=== PATIENT | female | born 1945 | race Caucasian/White ===

== ENCOUNTER 2020-04-01 09:04 | Inpatient (IN) ==
--- NOTE | 2020-03-16 13:01 | Anesthesiology Consultation ---
Date of Service March 16, 2020 Assessment & Plan (1) Encounter for pre-operative examination: Chart Review Chart Review: Pending: Refer to Additional Notes / Consult section (final PCP clearance (awaiting preop testing), 03/15 CXR/urine culture (in process) and preop Covid testing) Per nursing assessment 03/16/2020, pt traveled [place]- 03/06[place]. No known Covid positive contacts or Covid related symptoms. Will be >2 weeks since travel at time of surgery and preop Covid testing. Will await preop Covid testing results. Seen by PCP 03/15/20= Awaiting results for labs, x rays and EKG. CXR/urine culture from 03/15/20 still pending. Vascular Surgery Telemedicine Visit 11/25/19= follow up on surveillance of carotid/subclavian disease. Asymptomatic left subclavian disease. Carotid stenosis as per 11/2018 carotid Doppler. Vascular surgery considers patient to have minimal carotid disease by last duplex November 2018. She has no signs or symptoms of TIA, CVA or AF. Known left subclavian artery stenosis which remains asymptomatic. Recommend blood pressures and right arm for accuracy. Follow-up in 1 year with carotid duplex. Last seen by cardio in office 08/29/19= patient with history of ectopic atrial tachycardia. Continue current medications. Follow-up in 6 months. Per telephone note from cardio 09/30/19= "She has atrial arrhythmias but no history of CAD. She had a stress echo in the past year and there was no indication of ischemia. Her RCRI Cardiovascular risk is less than 0.5%. Therefore there is no indication for further cardiac work up before proceeding with surgery". 01/23/18 ACDF C4-7= Done under GA with Grade 1 view with MAC #3. ETT 7.5. History Surgery Operation Date: 04/01/20 13:25 Proposed Procedures p Right Reverse Total Shoulder Arthroplasty - Davin Aiken MD Height/Weight Height: 5 ft 3 in Weight: 65.317 kg Allergies Allergy/AdvReac Type Severity Reaction Status Date / Time clarithromycin Allergy Joint pain Unverified 03/16/20 13:46 hyoscyamine [From Levsin] Allergy Pain Unverified 03/16/20 13:46 throughout entire body latex Allergy Rash Unverified 03/16/20 13:46 levofloxacin [From Levaquin] Allergy Joint pain Unverified 03/16/20 13:46 Medications Home Medications Medication Instructions Recorded Confirmed Last Taken allopurinol 300 mg PO QAM 03/16/20 03/16/20 Unknown ascorbic acid (vitamin C) [Vitamin 500 mg PO DAILY 03/16/20 03/16/20 Unknown C] aspirin [Aspirin Low Dose] 81 mg PO HS 03/16/20 03/16/20 Unknown biotin 1 mg PO DAILY 03/16/20 03/16/20 Unknown calcium carb-D3-mag ox-zinc ox 1 tab PO DAILY 03/16/20 03/16/20 Unknown [Wilmer Mag Zinc Plus D3] celecoxib [Celebrex] 200 mg PO DAILY 03/16/20 03/16/20 Unknown coenzyme Q10 [Co Q-10] 100 mg PO DAILY 03/16/20 03/16/20 Unknown duloxetine [Cymbalta] 30 mg PO QAM 03/16/20 03/16/20 Unknown famotidine 20 mg PO QAM 03/16/20 03/16/20 Unknown glucos sul [id number]-iqegc-C-Mn 1 cap PO DAILY 03/16/20 03/16/20 Unknown [Glucosamine Chondroitin] levothyroxine 50 mcg PO QAM 03/16/20 03/16/20 Unknown potassium citrate 10 meq PO DAILY 03/16/20 03/16/20 Unknown simvastatin 20 mg PO HS 03/16/20 03/16/20 Unknown sotalol 80 mg PO BID 03/16/20 03/16/20 Unknown trazodone 50 mg PO HS 03/16/20 03/16/20 Unknown vitamin B complex 1 tab PO DAILY 03/16/20 03/16/20 Unknown Past Medical History Medical History (Updated 03/16/20 @ 13:39 by Claudia Bergman PA-C) Carotid stenosis Right ICA 50-69% and Left ICA < 50% per 11/2018 carotid doppler. Also showed left subclavian stenosis vs occlusion with reversed flow noted in vertebral artery. GERD (gastroesophageal reflux disease) Gout History of skin cancer Hyperlipidemia Hypothyroidism Migraine hx SVT (supraventricular tachycardia) Atrial tachycardia per cardio note- controlled with medication currently Past Family History Family History Other No family history of adverse response to anesthesia Past Surgical History Surgical History H/O hand surgery right History of appendectomy History of cardiac radiofrequency ablation NANDA Burt (~2-3 years ago) History of cataract surgery bilateral History of colonoscopy History of tonsillectomy Hx of bursectomy left hip S/P bunionectomy right foot and hammer toe correction S/P cervical discectomy "with cage" Dr Michelle C4-5-6-7. Full ROM. S/P LASIK surgery S/P DIMITRI-BSO Social History Smoking Status: Never smoker Do You Dip or Chew Tobacco: No Hx Alcohol Use: Yes Alcohol type: wine alcohol intake frequency: a few times a month Hx Substance Use: No substance use type: does not use Testing Laboratory Results 03/15/20= WBC: 9.38 H/H: 14.0/42.7 PLATELETS: 262 SODIUM: 141 POTASSIUM: 4.7 CHLORIDE: 100 CO2: 30 BUN: 11 CREATININE: 1.0 GLUCOSE: 83 HGB A1C: 5.7 PT: 13.2 PTT: 35 INR: 1.00 UA: Trace protein, 2 urobilinogen, trace esterase. (Culture pending) Electrocardiogram Date: 03/15/20 Findings: + SB @ (55) Right bundle branch block. Compared to EKG from August 22, 2019no significant change found per cardio. Stress Test Date: 02/03/19 Type: exercise (Echo) Resting EF: 50 to 54% Resting LV Function: normal Resting RWMA: + none Stress echo was negative for inducible ischemia. Left ventricular ejection fraction increases normally with stress. Exercise capacity is above average. Stress EKG equivocal due to RBBB. Moderate concentric LVH. Grade 1 diastolic dysfunction. Mild MR. Mild TR. Other Testing Carotid Duplex 12/11/18= Right carotid artery duplex examination indicates evidence of 50-69% stenosis of the internal carotid artery. Left carotid artery duplex examination indicates evidence of less than 50% stenosis of the internal carotid artery. Left subclavian stenosis versus occlusion with reversed flow noted in the vertebral artery.
--- NOTE | 2020-03-31 18:45 | History and Physical Report ---
DATE OF ADMISSION: 04/01/2020 CHIEF COMPLAINT: Chronic right shoulder pain and weakness. HISTORY OF PRESENT ILLNESS: This is a 74-year-old female patient of Dr. Aiken'topher complaining of chronic right shoulder pain and weakness, longstanding, now progressively getting worse. The patient has failed conservative treatment and has elected to proceed with a right reverse total shoulder arthroplasty. PAST MEDICAL HISTORY: Heart palpitations including SVT, upper back problems, acid reflux, basal cell carcinoma. SOCIAL HISTORY: Nonsmoker, occasional drinker. PAST SURGICAL HISTORY: Tonsils, appendectomy, ovarian removal, hysterectomy, right hand, right foot, right shoulder and C-spine surgery. FAMILY HISTORY: Noncontributory. REVIEW OF SYSTEMS: Chronic right shoulder pain and weakness. Otherwise, denies any shortness of breath, chest pain, nausea, vomiting or any other joint complaints. MEDICATIONS: 1. Levothyroxine 50 mcg daily. 2. Allopurinol 300 mg daily. 3. Simvastatin 20 mg daily. 4. Aspirin 81 mg daily. 5. Trazodone 50 mg at bedtime. 6. Potassium chloride 10 mEq daily. 7. Sotalol 80 mg twice daily. 8. Pepcid 20 mg daily. 9. Zofran 8 mg as needed. 10. Vitamin D3 daily. 11. Hydrochlorothiazide 50 mg daily as needed. 12. Vitamin C 500 mg tablets twice daily. 13. Vitamin B complex daily. 14. CoQ10 100 mg daily. 15. Biotin 10,000 mcg daily. 16. Cymbalta 30 mg daily. 17. Glucosamine chondroitin daily. 18. Calcium and magnesium complete vitamin twice daily. 19. Celebrex 200 mg daily. ALLERGIES: , HYOSCYAMINE SULFATE, LATEX, LEVOFLOXACIN. PHYSICAL EXAMINATION: GENERAL: Well-developed, well-nourished 74-year-old female in no acute distress. She is alert and oriented x3 and pleasant. HEENT: Normocephalic, atraumatic. Extraocular motions are intact. Pupils are equal and reactive to light. HEART: Regular rate and rhythm, no murmurs. LUNGS: Clear. ABDOMEN: Soft, nontender, bowel sounds present. EXTREMITIES: Right shoulder and upper extremity reveals active range of motion of 0-80 with pain, passively to 170 with pain. She has 2+/5 strength globally. She has crepitation and pain with range of motion. Neurologically and neurovascularly, she is intact in her right upper extremity. DIAGNOSES: Right shoulder rotator cuff arthropathy, history of supraventricular tachycardia, palpitations, neck problems, acid reflux, basal cell carcinoma, hypothyroidism, hypercholesterolemia. PLAN: The patient was advised of her diagnosis. Indications, risks, benefits, postop course have all been reviewed. The patient wished to proceed with a right reversed total shoulder arthroplasty. Necessary consent forms, preoperative testing and clearances will be obtained.
[~2020-04-01 09:04] MED LIST: ACETAMINOPHEN 500 MG TAB PO SCH; CEFAZOLIN 1000MG 1,000 MG/7.5 ML SYR IV SCH; CeleBREX 200 MG CAP PO SCH; DEXAMETHASONE SOD INJ 4 MG/ML VIAL ONE; FAMOTIDINE 20 MG TAB PO SCH; GABAPENTIN 300 MG CAP PO SCH; LR 15ML/HR IV SCH; METOCLOPRAMIDE HCL 10 MG TABLET PO SCH; ROPIVACAINE 0.5% 5 MG/ML 30 ML VIAL ONE; dexAMETHasone 4 MG TAB PO SCH
[2020-04-01] MEDS ORDERED: MIDAZOLAM HCL 1 MG/ML 2ML VIAL ONE ×2 (09:25)
[2020-04-01] MEDS ORDERED: NEOSTIGMINE METHYLSULFATE 5 MG/5 ML SYR ONE (09:25)
[2020-04-01] MEDS ORDERED: GLYCOPYRROLATE 0.2 MG/ML VIAL ONE ×2 (09:25→13:08)
[2020-04-01] MEDS ORDERED: ONDANSETRON INJ 2 MG/ML 2 ML VIAL ONE ×2 (09:25→12:19)
[2020-04-01] MEDS ORDERED: LIDOCAINE HCL 2% 2 ML VIAL/AMP(20MG/ML) INFIL ONE (09:25)
[2020-04-01] MEDS ORDERED: DEXAMETHASONE SOD INJ 4 MG/ML VIAL ONE (09:25)
[2020-04-01] MEDS ORDERED: fentaNYL citrate 100 MCG/2 ML VIAL ONE (09:25)
[2020-04-01] MEDS ORDERED: PROPOFOL IV EMULSION 10 MG/ML 20 ML VIAL IV ONE (09:25)
--- NOTE | 2020-04-01 09:37 | History & Physical Bridge Note ---
Date of Service April 01, 2020 History & Physical Bridge Note I have examined the patient, reviewed the History & Physical and in the interval since the performance of the History & Physical I have noted the following changes of clinical significance: no changes noted
[2020-04-01] MEDS ORDERED: BACITRACIN INJ 50,000 UNIT VIAL ONE (10:19)
[2020-04-01] MEDS ORDERED: METOCLOPRAMIDE HCL INJ 5 MG/ML 2 ML VIAL IV PRN (10:33)
[2020-04-01] MEDS ORDERED: ePHEDrine sulfate 50 MG/ML AMP IV PRN (10:33)
[2020-04-01] MEDS ORDERED: fentaNYL citrate 100 MCG/2 ML VIAL IV PRN (10:33)
[2020-04-01] MEDS ORDERED: ATROPINE SULFATE 0.1 MG/ML 10ML SYR IV PRN (10:33)
[2020-04-01] MEDS ORDERED: ONDANSETRON INJ 2 MG/ML 2 ML VIAL IV PRN (10:33)
[2020-04-01] MEDS ORDERED: PROMETHAZINE HCL 12.5 MG in SODIUM CHLORIDE 0.9% 50 ML IV PRN (10:33)
[2020-04-01] MEDS ORDERED: HYDROmorphone INJ 2 MG/ML SYR/VIAL IV PRN (10:33)
[2020-04-01] MEDS ORDERED: ROCURONIUM BROMIDE 10 MG/ML 5 ML VIAL IV ONE (12:19)
--- NOTE | 2020-04-01 13:47 | Operative Report ---
Post Operative Report Pre & Post Diagnosis Operation Date: 04/01/20 11:35 Pre-Op Diagnosis: Right Shoulder Rotator Cuff Arthropathy, failed rotator cuff repair, retained hardware (suture anchors). Post-Op Diagnosis: Same, biceps tendinitis I identified the patient and participated in the time-out.: Yes Procedure Operation Date: 04/01/20 11:35 Actual Procedures p Right Reverse Total Shoulder Arthroplasty, biceps tenodesis, hardware removal(Right) - Davin Aiken MD Surgeon Davin Aiken MD Resource Economist LALITA Millard Estimated Blood Loss 50 Findings Consistent with Post-Op Diagnosis Specimens Humeral head cut and 2of4 suture anchors Drains 2 Hemovac Anesthesia Type General Regional Complications none Disposition Accompanied Patient To Recovery: No Indications 74-year-old female who I performed a rotator cuff repair of a large acute on chronic rotator cuff tear. Patient had more pain than typical postoperative course over time and had persistent weakness with MRI 4 months postop demonstrating recurrent rotator cuff tear failed rotator cuff repair with proximal migration humerus and chronic inflammation and early rotator cuff arthropathy. Patient had unremitting pain requiring narcotics failed conservative management. All inflammatory parameters are negative and there is no signs of infection. Description of Procedure The patient was taken to the operating room and anesthetized under regional block and general anesthetic. The patient was positioned on the operating table in a 30 beachchair position with a towel roll under the medial border of the right scapula. The arm was draped free to be able to manipulate the shoulder as needed. The right upper extremity was prepped and draped in usual sterile fashion. Exam demonstrated 120 degrees forward elevation 100 to use abduction and 20 degrees external rotation. An anterior deltopectoral approach was performed. A longitudinal incision was made in the deltopectoral interval. The skin was incised sharply. Subcutaneous flaps were elevated off the fascia. The cephalic vein was dissected out and retracted lateral with the deltoid. The clavipectoral fascia was divided at the lateral margin of the conjoined tendon and extended up to the CA ligament. The following findings were noted: The subscapularis tendon was intact. There was scarred tenosynovitis of the biceps in the biceps groove and below the bicipital groove above the pectoral tendon. There was soft tissue failure of the rotator cuff both supraspinatus and anterior infraspinatus with teres minor intact. There was retained suture material in the old anchor fixation sites and the anchors were all intact well fixed within the bone. There was some scar tissue in the subdeltoid region. There was scarred bursal tissue overlying the failed rotator cuff repair. The upper centimeter of the pectoralis was released for inferior exposure. The biceps tendon findings demonstrated scarred biceps tendon in the bicipital groove below the biceps groove and above the pectoralis insertion. the biceps tendon was tenodesed to the pectoralis tendon with #2 FiberWire. The proximal biceps and scarred tenosynovium was resected. The subscapularis tendon was taken down off the lesser tuberosity using a subperiosteal dissection. A #1 Vicryl traction suture was placed into the free end of the subscapularis tendon and capsule. The subscapular muscle fibers were split longitudinally at the level of the circumflex vessels. The circumflex vessels were identified and tied off with silk ties and divided laterally. A Kitner elevator was used to free up the inferior fibers of the subscapularis off of the capsule. The axillary nerve was identified with a tug test and protected with a blunt Kee retractor between the nerve and the capsule. The subscapularis tendon was then taken down off of the lesser tuberosity subperiosteally and subperiosteal dissection was performed along the neck of the humerus as the arm is gradually externally rotated exposing the humeral head. The humeral head findings demonstrated grade 3 degenerative changes in the superior humeral head and on the glenoid no osteophytes. A Pedro elevator was used to assist in releasing the capsule of the neck of the humerus. The capsule was divided with Borja scissors down to the glenoid released off the anterior glenoid and the rotator interval was released to meet the capsular release and a 360 release of the subscapularis was accomplished. A Fukuda retractor was placed into the joint retracting the humeral head posterior. Glenoid findings demonstrated intact cartilage but grade III chondromalacia. The labrum and biceps tendon was resected. an anterior-inferior and posterior inferior capsular release were performed with electrocautery and a Pedro elevator on bone with the axillary nerve protected inferiorly by the retractor. Attention was then taken to the humeral preparation. The cutting guide was placed into the humeral head. It was positioned at 20 of retroversion. Oscillating saw was used to resect the humeral head giving the cut above the level of the posterior rotator cuff insertion site. The humerus was then prepared for the stem. I used the ascend flex stem from [employer] The sizing broaches were used followed by trial broaches up to a size 5B long which had the appropriate fit and fill. The appropriate sized cut protector was placed. The humerus was then retracted posterior to the glenoid. The glenoid was sized for a 25 baseplate. The guide for the baseplate was positioned in a 10 inferior tilt and the central drill hole was made. The reamer for the 25 baseplate was used. The central drill was widened for the peg. Because the patient has some superior tilt on her port lions glenoid he had to resect more the inferior glenoid and superior glenoid and we did ream down into the subchondral bone and it started to fragment superficially but the deep bone was still intact without fracture. Used bone graft from the humeral head to bone graft a cyst that was curetted in the posterior glenoid and also put a thin layer of bone graft over the inferior glenoid as patient has significant osteoporosis. The aequalis 25 mm hydroxyapatite-coated baseplate was impacted into position. The base plate was transfixed with superior and inferior locking screws and anterior and posterior compression screws with stable fixation. The fan reamer was used for the 36 mm symmetrical glenoid sphere. After irrigation the 36 mm symmetrical glenoid sphere was impacted onto the baseplate and the screw was tightened. Attention was taken back to the humerus. The cut protector was removed and the low offset +0 humeral tray trial was assembled to the trial stem rotated appropriately to get bony coverage and then screwed in position. A trial reduction was performed. The reduction was too tight and we had to resect a few more millimeters of the neck and set the implant deeper and cut off some of the neck bone with the oscillating saw replaced trials and the +6 mm trial insert demonstrated good stability and no shuck. The trials were removed. 3 drill holes are made into the harder bone in the bicipital groove area and 3 #5 FiberWire sutures were placed transosseously. The canal was irrigated with antibiotic solution with bacitracin. The final component was assembled. The final component was 5B long ascend flex P TC bone ingrowth stem with +0 low offset humeral tray and the 36+6 reversed insert polyethylene. This was then impacted into the humerus with a tight press-fit. It was reduced to the glenoid sphere. Stability was verified. Subscapularis was repaired with the #5 FiberWire sutures using Wesley-Akash suture technique. Lateral row soft tissue repair was performed with #2 FiberWire [id number] sutures. The pectoralis was repaired with #2 FiberWire [id number] sutures reinforcing the biceps tendon tenodesis. The arm was taken through a range of motion which demonstrated 150 degrees forward elevation 100 use abduction and 40 degrees of X rotation without any tension on repair. The implant was stable through the range of motion tested. The wound was copiously irrigated. 2 Hemovac drains were placed. The deltopectoral interval was closed with [id number] #1 Vicryl sutures. The subcutaneous tissues were closed with 2-0 Vicryl sutures. The skin was closed with toby. Sterile dressings were applied and a shoulder immobilizer. Guy CELIS my physician assistant associate full professor assisted in the procedure to the entire procedure including patient positioning arm positioning prepping and draping soft tissue retraction instrument management suture management and performed the subcutaneous and skin closure and will participate in the postoperative care of the patient. I attest to the content of the Intraoperative Record and any orders documented therein. Any exceptions are noted below.
--- NOTE | 2020-04-01 14:02 | Operative Report (OR) ---
DATE OF OPERATION: 04/01/2020 ADDENDUM: After the humeral head cut was made, I did expose the metaphysis bone of the humerus. During the broaching, we encountered the suture anchors, which had to be removed in order to continue proceeding with the procedure. Two PEEK footprint anchors and 2 Healicoil anchors were removed. The Healicoil anchors were removed piecemeal as there are thin spiral type anchors and the footprint anchors were removed in their entirety and sent as specimen. All the suture material was removed from those anchors. It was noted that there was soft tissue failure with the repair and all the sutures were intact and were not torn. I attest to the content of the Intraoperative Record and any orders documented therein. Any exception s are noted below.
--- NOTE | 2020-04-01 14:07 | XRay Report ---
XR shoulder RT min 2V routine CLINICAL HISTORY: Post shoulder surgery COMPARISON STUDY: None. FINDINGS: The patient is status post a reverse right total shoulder arthroplasty the hardware is inta ct. No fracture or dislocation. Skin toby and surgical drains are in place. Evidence for prior cer vical spinal fusion. IMPRESSION: Status post reverse right total shoulder arthroplasty. No evidence for hardware complica tion. ACT 112: Negative or not required by law. Electronically signed by: Antoine Gongora M.D. 04/01/2020 2:06 PM
--- NOTE | 2020-04-01 14:16 | Anesthesiology Progress Note ---
Date of Service April 01, 2020 Anesthesia Post Procedure Vital Signs Vital Signs: Temp Pulse Pulse Resp BP BP Pulse Ox 04/01/20 14:05 55 L 11 L 115/58 L 99 04/01/20 13:55 53 L 12 119/59 L 99 04/01/20 13:45 58 L 14 127/64 99 04/01/20 13:38 36.0 C L 63 12 112/64 99 04/01/20 10:27 119/56 L 04/01/20 10:25 123/62 04/01/20 09:57 36.7 C 53 L 16 138/66 99 Pain Intensity Right Shoulder: Pain Intensity: 0 Transfer of Care Handoff Completed per policy Notes Mental Status: alert / awake / arousable and participated in evaluation Patient Amnestic to Procedure: Yes Nausea / Vomiting: adequately controlled Pain: adequately controlled Airway Patency, RR, SpO2: stable & adequate BP & HR: stable & adequate Hydration State: stable & adequate Anesthetic Complications: no major complications apparent
[2020-04-01] MEDS ORDERED: NALOXONE HCL 0.4 MG/1 ML VIAL/CARP IV PRN (14:50)
[2020-04-01] MEDS ORDERED: bisacodyL 10 MG SUPP PR PRN (14:50)
[2020-04-01] MEDS ORDERED: MAGNESIUM HYDROXIDE SUSP 30 ML UDC PO PRN (14:50)
--- NOTE | 2020-04-01 16:10 | Consultation ---
Date of Consultation April 01, 2020 Assessment & Plan (1) Status post reverse total arthroplasty of right shoulder: Post op day# 0 S/P right reverse shoulder arthroplasty today by Dr. Aiken EB#50ml -pain management per ortho -wound management per ortho -PT/OT as appropriate -DVT prophylaxis per ortho -incentive spirometry -monitor H&H for acute blood loss anemia; pre-op Hgb: 15 (2) History of atrial tachycardia: S/P Ablation. On Sotalol H/O sinus bradycardia on pre-op EKG -Noted bradycardia with rate in 50's. Regular rhythm on exam. Pt asymptomatic -Continue sotalol -Monitor pulse (3) Hypotension: BP's 98/59. Pt asymptomatic -Currently receiving maintenance IVF -Monitor BP (4) Hypothyroidism: -Continue levothyroxine (5) Gout: -Continue allopurinol (6) Hyperlipidemia: -Continue simvastatin DVT Prophylaxis -SCDs per ortho Disposition per primary service Follows with Agustín Alcantara PA-C for routine care Pt was seen and care coordinated with Dr Sequeira. See addendum Pt will be followed by Dr Mcnulty starting 04/02/2020. Thank you for this consultation. We will follow the patient with you during their hospital stay. You can reach a member of the [facility] Team 12/03 via pager @ [phone]. Supervising Physician Co-Signing Physician Notes I have seen and examined the patient and have discussed the case with the provider above. I agree with the assessment and plan as stated. 74 yo F s/p shoulder surgery today. BP and pulse have been lower than normal today. She reports feeling fine but has some numbness in her right hand, a typical post-op finding in this type of surgery. She is otherwise not working to breathe, denies chest pain and has a normal cardiopulmonary system on exam. S1/2 was heard and no gallops, murmurs or rubs. Lungs were CTA bilaterally. Abdomen was soft, NTND. No peripheral edema was present. She was alert and oriented. Agree with post-operative care plan as stated above and per Orthopedics. Thank you for this consult. DO Hua, [facility] History of Present Illness Requesting Physician: Dr Aiken Reason for Consultation: Post op medical management Attending Physician: Daivn Aiken MD History of Present Illness Pt is 74 y/o F with PMH atrial tachycardia s/p ablation on sotalol, dyslipidemia, gout, hypothyroidism, asymptomatic carotid stenosis, asymptomatic left subclavian vein stenosis [place] [facility] [place] consultation s/p right reverse shoulder arthroplasty today by Dr. Aiken. Postop patient reports right shoulder and arm still with numbness. She also reports throat is scratchy and is otherwise without complaint. Has been able to drink water without difficulty. Denies nausea, vomiting, shortness of breath, chest pain, palpitations, dizziness. Reports last BM was 03/31/2020. Denies fever/chills, diaphoresis, MA, syncope, vision changes, neck pain, CP, SOB, orthopnea, cough, choking, abdominal pain, extremity edema, rashes, urinary symptoms. Allergies Allergy/AdvReac Type Severity Reaction Status Date / Time clarithromycin Allergy Joint pain Verified 04/01/20 09:51 hyoscyamine [From Levsin] Allergy Pain Verified 04/01/20 09:51 throughout entire body latex Allergy Rash Verified 04/01/20 09:51 levofloxacin [From Levaquin] Allergy Joint pain Verified 04/01/20 09:51 Home Medications Home Medications Medication Instructions Recorded Confirmed Type allopurinol 300 mg PO QAM 03/16/20 04/01/20 History ascorbic acid (vitamin C) [Vitamin 500 mg PO DAILY 03/16/20 04/01/20 History C] aspirin [Aspirin Low Dose] 81 mg PO HS 03/16/20 04/01/20 History biotin 1 mg PO DAILY 03/16/20 04/01/20 History calcium carb-D3-mag ox-zinc ox 1 tab PO DAILY 03/16/20 04/01/20 History [Wilmer Mag Zinc Plus D3] celecoxib [Celebrex] 200 mg PO DAILY 03/16/20 04/01/20 History coenzyme Q10 [Co Q-10] 100 mg PO DAILY 03/16/20 04/01/20 History duloxetine [Cymbalta] 30 mg PO QAM 03/16/20 04/01/20 History famotidine 20 mg PO QAM 03/16/20 04/01/20 History glucos sul [id number] 1 cap PO DAILY 03/16/20 04/01/20 History [Glucosamine Chondroitin] levothyroxine 50 mcg PO QAM 03/16/20 04/01/20 History potassium citrate 10 meq PO DAILY 03/16/20 04/01/20 History simvastatin 20 mg PO HS 03/16/20 04/01/20 History sotalol 80 mg PO BID 03/16/20 04/01/20 History trazodone 50 mg PO HS 03/16/20 04/01/20 History vitamin B complex 1 tab PO DAILY 03/16/20 04/01/20 History Patient History Medical History (Updated 04/01/20 @ 16:20 by Moriah Mcclain PA-C) Carotid stenosis Right ICA 50-69% and Left ICA < 50% per 11/2018 carotid doppler. Also showed left subclavian stenosis vs occlusion with reversed flow noted in vertebral artery. GERD (gastroesophageal reflux disease) Gout History of atrial tachycardia History of skin cancer Hyperlipidemia Hypothyroidism Migraine hx SVT (supraventricular tachycardia) Atrial tachycardia per cardio note- controlled with medication currently Surgical History (Updated 04/01/20 @ 16:18 by Moriah Mcclain PA-C) H/O hand surgery right History of appendectomy History of cardiac radiofrequency ablation [facility] (~2-3 years ago) History of cataract surgery bilateral History of colonoscopy History of tonsillectomy Hx of bursectomy left hip S/P bunionectomy right foot and hammer toe correction S/P cervical discectomy "with cage" Dr Michelle [id number]. Full ROM. S/P LASIK surgery S/P DIMITRI-BSO Family History Other Cancer Hypertension No family history of adverse response to anesthesia Stroke Social History Smoking Status: Never smoker Second Hand Exposure: No; Do You Dip or Chew Tobacco: No; Tobacco Cessation Education Requested by Patient: No Hx Alcohol Use: Yes Alcohol type: wine Hx Substance Use: No Preferred Language: Portuguese Communication Ability: Effective Hearing Aid Specialist Required: No Beliefs That Will Affect Care: None Current Living Situation: Spouse Other Information That Helps Us Care for You: No Feels Safe at Home: Yes Safety Concerns: Feels Safe At This Time Review of Systems Review of Systems: All systems reviewed & are unremarkable except as noted in HPI & below Physical Exam Physical Exam: General: no distress, WDWN Head: normocephalic, atraumatic Eyes: conjunctiva non-injected, anicteric ENT: normal inspection external ears, nose, mucous membranes moist Neck: supple, trachea midline Lungs: clear, no respiratory distress, no wheezing/rhonchi/rales CV: bradycardia, rate 52, regular rhythm, no murmur, no pretibial edema Abd: normal BS, soft, non-tender Ext: RUE: +sling in place to right arm, distal pulses palpable, pt still with decreased sensation to light touch of fingers. Remaining extremities normal appearance, ROM intact. no calf tenderness Neuro: A&O x 3, no focal deficits noted, normal affect Skin: warm, dry Results & Data ([facility]) Vital Signs (Past 12 Hours) Vital Signs Temp Pulse Pulse Resp BP BP Pulse Ox 04/01/20 15:34 36.4 C L 51 L 14 98/59 L 100 04/01/20 14:58 36.2 C L 49 L 14 94/56 L 100 04/01/20 14:31 36.4 C L 52 L 14 108/65 100 04/01/20 14:15 36.7 C 52 L 12 110/58 L 99 04/01/20 14:05 55 L 11 L 115/58 L 99 04/01/20 13:55 53 L 12 119/59 L 99 04/01/20 13:45 58 L 14 127/64 99 04/01/20 13:38 36.0 C L 63 12 112/64 99 04/01/20 10:27 119/56 L 04/01/20 10:25 123/62 04/01/20 09:57 36.7 C 53 L 16 138/66 99
[2020-04-01] MEDS: SODIUM CHLORIDE 0.9% 1000ML 1,000 ML IV SCH (16:34)
[2020-04-01] MEDS: ACETAMINOPHEN 500 MG TAB PO SCH ×2 (16:37→21:25)
[2020-04-01] MEDS: CEFAZOLIN 1000MG 1,000 MG/7.5 ML SYR IV SCH ×2 (17:59→23:19)
[2020-04-01] MEDS: SIMVASTATIN 20 MG TAB PO SCH (20:17)
[2020-04-01] MEDS: SENNA 8.6 MG TAB PO SCH (20:17)
[2020-04-01] MEDS: DOCUSATE SODIUM 100 MG CAP PO SCH (20:17)
[2020-04-01] MEDS: TRAZODONE HCL 50 MG TAB PO SCH (20:17)
[2020-04-01] MEDS: ASPIRIN 81 MG ECTAB PO SCH (20:18)
[2020-04-01] MEDS ORDERED: SOTALOL HCL 80 MG TAB PO SCH (21:00)
[2020-04-02] MEDS: SODIUM CHLORIDE 0.9% 1000ML 1,000 ML IV SCH (02:27)
[2020-04-02 05:48] LABS: Hematocrit (blood only) 34.3 % (37-47); Hemoglobin 11.7 g/dL (12.0-16.0); Immature Granulocytes # (auto) 0.03 K/uL (0.00-0.02); Immature Granulocytes % (auto) 0.3 %; Lymphocytes # (auto) 0.95 K/uL (1.2-3.4); Lymphocytes % (auto) 8.2 %; Mean Corpuscular Hemoglobin 31.4 pg (25-34); Mean Corpuscular Hgb Conc 34.1 g/dL (32-36); Mean Platelet Volume 10.1 fL (7.4-10.4); Monocytes # (auto) 0.56 K/uL (0.11-0.59); Monocytes % (auto) 4.8 %; Neutrophils # (auto) 10.05 K/uL (1.4-6.5); Neutrophils % (auto) 86.7 %; Platelet Count 196 K/uL (130-400); RDW Coefficient of Variation 13.6 % (11.5-14.5); Red Blood Count 3.73 M/uL (4.2-5.4); White Blood Count 11.59 K/uL (4.8-10.8)
[2020-04-02] MEDS: LEVOTHYROXINE SODIUM 50 MCG TABLET PO SCH (05:56)
[2020-04-02] MEDS: ACETAMINOPHEN 500 MG TAB PO SCH ×3 (05:57→21:32)
[2020-04-02 06:14] LABS: BUN Creatinine Ratio 17.2 (10-20); Calcium 8.2 mg/dl (8.5-10.1); Est GFR (African American) 77.7; Potassium 4.3 mmol/L (3.5-5.1)
--- NOTE | 2020-04-02 07:39 | Anesthesiology Progress Note ---
Date of Service April 02, 2020 Anesthesia Post Procedure Vital Signs Vital Signs: Temp Pulse Pulse Resp BP BP Pulse Ox 04/02/20 02:50 36.6 C 64 16 106/76 98 04/01/20 22:40 36.5 C 63 16 93/54 L 95 04/01/20 19:42 36.6 C 55 L 16 108/67 95 04/01/20 17:32 36.3 C L 57 L 16 94/57 L 97 04/01/20 16:29 36.4 C L 50 L 16 93/65 L 97 04/01/20 15:34 36.4 C L 51 L 14 98/59 L 100 04/01/20 14:58 36.2 C L 49 L 14 94/56 L 100 04/01/20 14:31 36.4 C L 52 L 14 108/65 100 04/01/20 14:15 36.7 C 52 L 12 110/58 L 99 04/01/20 14:05 55 L 11 L 115/58 L 99 04/01/20 13:55 53 L 12 119/59 L 99 04/01/20 13:45 58 L 14 127/64 99 04/01/20 13:38 36.0 C L 63 12 112/64 99 04/01/20 10:27 119/56 L 04/01/20 10:25 123/62 04/01/20 09:57 36.7 C 53 L 16 138/66 99 Pain Intensity Right Shoulder: Pain Intensity: 0 Notes Mental Status: alert / awake / arousable and participated in evaluation Patient Amnestic to Procedure: Yes Nausea / Vomiting: adequately controlled Pain: adequately controlled Airway Patency, RR, SpO2: stable & adequate BP & HR: stable & adequate Hydration State: stable & adequate Anesthetic Complications: no major complications apparent and Pt Satisfied with anesthetic care
[2020-04-02] MEDS: ASCORBIC ACID 500 MG TAB PO SCH (08:13)
[2020-04-02] MEDS: DULOXETINE HCL 30 MG CAP PO SCH (08:13)
[2020-04-02] MEDS: MULTIVITAMIN TAB PO SCH (08:14)
[2020-04-02] MEDS: FAMOTIDINE 20 MG TAB PO SCH (08:14)
[2020-04-02] MEDS: POTASSIUM CITRATE 10 MEQ TAB PO SCH (08:14)
[2020-04-02] MEDS: VITAMIN B COMPLEX TAB PO SCH (08:14)
[2020-04-02] MEDS: CALCIUM 600MG + VIT D 400 IU TAB PO SCH (08:15)
[2020-04-02] MEDS: DOCUSATE SODIUM 100 MG CAP PO SCH ×2 (08:15→21:32)
[2020-04-02] MEDS: allopurinoL 300 MG TAB PO SCH (08:15)
--- NOTE | 2020-04-02 08:38 | Hospitalist Progress Note ---
Date of Service April 02, 2020 Assessment & Plan (1) Status post reverse total arthroplasty of right shoulder: Post op day# 1 S/P right reverse shoulder arthroplasty today by Dr. Aiken EBL#50ml Total hemovac output #295ml Post op doing well -pain management per ortho -wound management per ortho -PT/OT as appropriate -DVT prophylaxis per ortho -incentive spirometry -Hgb: 11.7 from pre-op Hgb: 15, consistent with dilution and acute blood loss anemia; continue to monitor H&H (2) History of atrial tachycardia: S/P failed Ablations. On Sotalol H/O sinus bradycardia on pre-op EKG -Noted bradycardia with rate in 50's. Regular rhythm on exam. Pt asymptomatic on POD #1. Sotalol was held last night -Today pulse in the low 60's. -Resume sotalol with holding parameters -Monitor pulse (3) Hypotension: BP's on low side yesterday. Today SBP's in low 100's. Pt asymptomatic -Monitor BP (4) Hypothyroidism: -Continue levothyroxine (5) Gout: -Continue allopurinol (6) Hyperlipidemia: -Continue simvastatin DVT Prophylaxis -SCDs per ortho Disposition per primary service Pt was seen and care coordinated with Dr Mcnulty. See addendum Thank you for this consultation. We will follow the patient with you during their hospital stay. You can reach a member of the [facility] Hospitalist Team 12/03 via pager @ [phone]. Admission and Anticipated Discharge Date Admission Date: April 01, 2020 Supervising Physician Co-Signing Physician Notes Pt was seen and examined. Agreed with Moriah SARGENT exam, assessment and plan. Day#1 Status post reverse total arthroplasty of right shoulder by Dr. Mcfadden. No Postop complications. Hgb 12 today. Walk in the hallway with PT, Continue PT/OT. Pain control. Fall precaution. Will resume Sotalol. Continue monitor. MD Pricila Subjective Pt seen an examined sitting up in bedside chair. POD #1. Patient states doing well. Denies any pain today. Reports paresthesias to arm and hand have resolved. Denies any dizziness, lightheadedness, palpitations, shortness of breath, chest pain. Eating and drinking well, no nausea or vomiting. Urinating without difficulty. Reports passing flatus. No BM yet. Denies fever/chills, diaphoresis, MA, neck pain, choking, abdominal pain, extremity edema, rashes, urinary symptoms. Review of Systems Review of Systems: All systems reviewed & are unremarkable except as noted in HPI & below Physical Exam Physical Exam: General: no distress, WDWN Head: normocephalic, atraumatic Eyes: conjunctiva non-injected, anicteric ENT: normal inspection external ears, nose, mucous membranes moist Neck: supple, trachea midline Lungs: clear, no respiratory distress, no wheezing/rhonchi/rales CV: RRR, rate 62, no murmur, no pretibial edema Abd: normal BS, soft, non-tender Ext: RUE: +sling in place to right arm, distal pulses palpable, Able to move fingers, sensation to light touch intact. Remaining extremities normal appe arance, ROM intact. no calf tenderness Neuro: A&O x 3, no focal deficits noted, normal affect Skin: warm, dry Results & Data Results & Data ([facility]) Vital Signs (Past 12 Hours) Vital Signs Temp Pulse Pulse Resp BP Pulse Ox 04/02/20 08:08 36.5 C 61 18 115/72 97 04/02/20 02:50 36.6 C 64 16 106/76 98 04/01/20 22:40 36.5 C 63 16 93/54 L 95 Laboratory Results Short CBC 04/02/20 Range/Units 05:29 WBC 11.59 H (4.8-10.8) K/uL Hgb 11.7 L (12.0-16.0) g/dL Hct 34.3 L (37-47) % Plt Count 196 (130-400) K/uL BMP 04/02/20 05:29 Sodium 140 Potassium 4.3 Chloride 107 Carbon Dioxide 27 BUN 15 Creatinine 0.85 Glucose 154 H Calcium 8.2 L
[2020-04-02] MEDS ORDERED: NON-FORMULARY MEDICATION (Coenzyme Q10 [Co Q-10] 100 MG) PO SCH (09:00)
[2020-04-02] MEDS ORDERED: NON-FORMULARY MEDICATION (Glucos Sul 2kcl-Msm-Chond-C-Mn [Glucosamine Chondroitin] 1 CAP) PO SCH (09:00)
[2020-04-02] MEDS ORDERED: NON-FORMULARY MEDICATION (Biotin 1 MG) PO SCH (09:00)
--- NOTE | 2020-04-02 09:13 | Orthopedic Progress Note ---
Date of Service April 02, 2020 Assessment & Plan (1) Status post reverse total arthroplasty of right shoulder: Postop day 1 status post right reverse TSA PT/OT protocols. DVT prophylaxis with aspirin, SCDs Pain management as written. Admission and Anticipated Discharge Date Admission Date: April 01, 2020 Subjective Postop day 1 Patient sitting up in bed. Awake and alert. Appears comfortable. She states that her block is starting to wear off and she is getting better range of motion of her fingers. She states that she still has some slight numbness in the right thumb. Denies shortness of breath, chest pain, lightheadedness. Physical Exam Physical Exam: Dressings are clean, dry, and intact. Hemovac is functioning. Good range of motion of her right wrist and fingers. Residual numbness remaining in her right thumb which she states is getting better. Cap refills less than 2 seconds. Sling is in place. Results & Data ([facility]) Vital Signs (Past 12 Hours) Vital Signs Temp Pulse Pulse Resp BP Pulse Ox 04/02/20 08:08 36.5 C 61 18 115/72 97 04/02/20 02:50 36.6 C 64 16 106/76 98 04/01/20 22:40 36.5 C 63 16 93/54 L 95 Laboratory Results Laboratory Results WBC 11.59 K/uL (4.8-10.8) H 04/02/20 05:29 RBC 3.73 M/uL (4.2-5.4) L 04/02/20 05:29 Hgb 11.7 g/dL (12.0-16.0) L 04/02/20 05:29 Hct 34.3 % (37-47) L 04/02/20 05:29 MCV 92.0 fL (80-100) 04/02/20 05:29 MCH 31.4 pg (25-34) 04/02/20 05:29 MCHC 34.1 g/dL (32-36) 04/02/20 05:29 RDW Std Deviation 45.0 fL (36.4-46.3) 04/02/20 05:29 RDW Coeff of Anderson 13.6 % (11.5-14.5) 04/02/20 05:29 Plt Count 196 K/uL (130-400) 04/02/20 05:29 MPV 10.1 fL (7.4-10.4) 04/02/20 05:29 Immature Gran % (Auto) 0.3 % 04/02/20 05:29 Neut % (Auto) 86.7 % 04/02/20 05:29 Lymph % (Auto) 8.2 % 04/02/20 05:29 Culberson % (Auto) 4.8 % 04/02/20 05:29 Eos % (Auto) 0.0 % 04/02/20 05:29 Baso % (Auto) 0.0 % 04/02/20 05:29 Neut # (Auto) 10.05 K/uL (1.4-6.5) H 04/02/20 05:29 Lymph # (Auto) 0.95 K/uL (1.2-3.4) L 04/02/20 05:29 Culberson # (Auto) 0.56 K/uL (0.11-0.59) 04/02/20 05:29 Eos # (Auto) 0.00 K/uL (0-0.5) 04/02/20 05:29 Baso # (Auto) 0.00 K/uL (0-0.2) 04/02/20 05:29 Immature Gran # (Auto) 0.03 K/uL (0.00-0.02) H 04/02/20 05:29 Sodium 140 mmol/L (136-145) 04/02/20 05:29 Potassium 4.3 mmol/L (3.5-5.1) 04/02/20 05:29 Chloride 107 mmol/L (98-107) 04/02/20 05:29 Carbon Dioxide 27 mmol/L (21-32) 04/02/20 05:29 Anion Gap 6.0 (3-11) 04/02/20 05:29 BUN 15 mg/dl (7-18) 04/02/20 05:29 Creatinine 0.85 mg/dl (0.6-1.2) 04/02/20 05:29 Est Cr Clr Drug Dosing 52.0 ml/min 04/02/20 05:29 Est GFR ( Amer) 77.7 04/02/20 05:29 Est GFR (Non-Af Amer) 67.0 04/02/20 05:29 BUN/Creatinine Ratio 17.2 (10-20) 04/02/20 05:29 Glucose 154 mg/dl (70-99) H 04/02/20 05:29 Calcium 8.2 mg/dl (8.5-10.1) L 04/02/20 05:29 Blood Type B Positive 04/01/20 09:23 Antibody Screen NEGATIVE 04/01/20 09:23
[2020-04-02] MEDS: OXYCODONE HCL IR 5 MG TAB (IMMEDIATE RELEASE) PO PRN ×3 (11:23→20:09)
[2020-04-02] MEDS: HYDROmorphone INJ 0.5 MG/0.5 ML SYR IV PRN ×2 (14:01→18:17)
[2020-04-02] MEDS ORDERED: KETOROLAC 30 MG/ML VIAL IV ONE (21:06)
[2020-04-02] MEDS: SIMVASTATIN 20 MG TAB PO SCH (21:30)
[2020-04-02] MEDS: ASPIRIN 81 MG ECTAB PO SCH (21:31)
[2020-04-02] MEDS: SENNA 8.6 MG TAB PO SCH (21:31)
[2020-04-02] MEDS: TRAZODONE HCL 50 MG TAB PO SCH (21:31)
[2020-04-03] MEDS ORDERED: SODIUM CHLORIDE 0.9% 500 ML IV ONE (00:24)
[2020-04-03] MEDS: ACETAMINOPHEN 500 MG TAB PO SCH (05:52)
[2020-04-03] MEDS: LEVOTHYROXINE SODIUM 50 MCG TABLET PO SCH (05:52)
[2020-04-03 06:34] LABS: Basophils # (auto) 0.02 K/uL (0-0.2); Basophils % (auto) 0.1 %; Eosinophils # (auto) 0.12 K/uL (0-0.5); Eosinophils % (auto) 0.9 %; Hematocrit (blood only) 33.7 % (37-47); Immature Granulocytes # (auto) 0.03 K/uL (0.00-0.02); Immature Granulocytes % (auto) 0.2 %; Lymphocytes # (auto) 3.18 K/uL (1.2-3.4); Lymphocytes % (auto) 23.4 %; Mean Corpuscular Hemoglobin 30.9 pg (25-34); Mean Corpuscular Hgb Conc 32.6 g/dL (32-36); Mean Corpuscular Volume 94.7 fL (80-100); Monocytes # (auto) 1.41 K/uL (0.11-0.59); Monocytes % (auto) 10.4 %; Neutrophils # (auto) 8.82 K/uL (1.4-6.5); Platelet Count 189 K/uL (130-400); RDW Coefficient of Variation 14.2 % (11.5-14.5); RDW Standard Deviation 48.8 fL (36.4-46.3); Red Blood Count 3.56 M/uL (4.2-5.4); White Blood Count 13.58 K/uL (4.8-10.8)
[2020-04-03 07:01] LABS: Est GFR (African American) 64.6; Potassium 3.4 mmol/L (3.5-5.1)
[2020-04-03 07:02] LABS: Calcium 8.6 mg/dl (8.5-10.1); Creatinine Clr Calc Pharmacy 44.6 ml/min; Est GFR (Non-African American) 55.7
[2020-04-03] MEDS ORDERED: POTASSIUM CHLORIDE 20 MEQ TABCR PO STA (08:17)
[2020-04-03] MEDS: MULTIVITAMIN TAB PO SCH (08:30)
[2020-04-03] MEDS: VITAMIN B COMPLEX TAB PO SCH (08:30)
[2020-04-03] MEDS: DOCUSATE SODIUM 100 MG CAP PO SCH (08:30)
[2020-04-03] MEDS: ASCORBIC ACID 500 MG TAB PO SCH (08:31)
[2020-04-03] MEDS: CALCIUM 600MG + VIT D 400 IU TAB PO SCH (08:31)
[2020-04-03] MEDS: POTASSIUM CITRATE 10 MEQ TAB PO SCH (08:31)
[2020-04-03] MEDS: allopurinoL 300 MG TAB PO SCH (08:31)
[2020-04-03] MEDS: DULOXETINE HCL 30 MG CAP PO SCH (08:31)
[2020-04-03] MEDS: FAMOTIDINE 20 MG TAB PO SCH (08:32)
--- NOTE | 2020-04-03 09:19 | Orthopedic Progress Note ---
Date of Service April 03, 2020 Assessment & Plan (1) Status post reverse total arthroplasty of right shoulder: Postop day 2 status post right reverse TSA PT/OT protocols. DVT prophylaxis with aspirin, SCDs Pain management as written. Plan for d/c home today. Admission and Anticipated Discharge Date Admission Date: April 01, 2020 Subjective Postop day 2 Patient sitting up at the edge of her bed. Awake and alert. Appears comfortable. Pain is much better controlled today after Toradol last night. No numbness today. Denies shortness of breath, chest pain, lightheadedness. Physical Exam Constitutional: WD/WN, vitals as above Musculoskeletal: Hip: + surgical incision (right shoulder dressing C/D/I.); hip normal to inspection, no deformity, no skin erythema and no ecchymosis Skin: no rashes, warm and dry Neurologic: normal touch/pain/proprioception (Right hand motion and sensation normal.) Psychiatric: A+Ox3, euthymic affect Speech: normal rate/rhythm/volume of speech Results & Data ([facility]) Vital Signs (Past 12 Hours) Vital Signs Temp Pulse Pulse Pulse Pulse Resp BP 04/03/20 08:37 36.6 C 63 58 L 53 L 61 18 92/56 L 04/03/20 07:42 36.6 C 53 L 18 92/56 L 04/03/20 02:16 95/56 L 04/02/20 23:51 36.6 C 58 L 16 88/46 L 04/02/20 21:30 61 110/68 Pulse Ox 04/03/20 08:37 97 04/03/20 07:42 97 04/03/20 02:16 04/02/20 23:51 97 04/02/20 21:30
[2020-04-03] MEDS: OXYCODONE HCL IR 5 MG TAB (IMMEDIATE RELEASE) PO PRN (10:52)
--- NOTE | 2020-04-14 02:48 | Discharge Summary (DS) ---
HISTORY OF PRESENT ILLNESS: This is a 74-year-old female patient of Dr. Aiken'topher complaining of chronic right shoulder pain and weakness, longstanding, progressively getting worse. The patient was diagnosed with end-stage osteoarthritis and rotator cuff arthropathy. The patient elected to proceed with a right reverse total shoulder arthroplasty. PAST MEDICAL HISTORY: Heart palpitations including SVT, upper back problems, acid reflux, and basal cell carcinoma. POSTOPERATIVE COURSE: The patient underwent a right reverse total shoulder arthroplasty on 04/01/2020. She was followed closely with medical consultation, DVT prophylaxis in the form of aspirin, limited physical therapy and pain control. The patient did well postoperatively and was discharged home on postoperative day #2. PHYSICAL EXAMINATION: On discharge, right shoulder dressings were clean, dry and intact. Fingers were mobile. Sling was intact. Elbow was mobile. Neurologically and neurovascularly intact right upper extremity. DIAGNOSES: Status post right reversed total shoulder arthroplasty, history of SVT, upper back problems, acid reflux, and basal cell carcinoma. PLAN: The patient discharged home on postoperative day #2. So do home exercise program only. No formal physical therapy at this point in time. The patient will continue her preadmission medications with the addition of aspirin for DVT prophylaxis. She will also use pain medications as needed.
== END 2020-04-03 10:57 | disposition home or self-care (01) | DRG 483 ==
LOC: ASU 09:04 → 3E 13:46